=== PATIENT | male | born 1940 | race Caucasian/White ===

== ENCOUNTER 2020-11-28 09:53 | Outpatient (CLI) | payer MEDICARE | END 2020-11-28 09:54 | disposition home or self-care (01) | LOC: CSHCT 09:53 | PROVIDERS: ATTEND Thoracic Surgery (Cardiothoracic Vascular Surgery) | DX: I35.9 Nonrheumatic aortic valve disorder, unspecified (principal); I25.10 Atherosclerotic heart disease of native coronary artery without angina pectoris; I70.90 Unspecified atherosclerosis; I38 Endocarditis, valve unspecified; R91.8 Other nonspecific abnormal finding of lung field | CPT/HCPCS: 71250 ==